=== PATIENT | female | born 1960 | race Caucasian/White ===

== ENCOUNTER 2016-11-13 14:32 | Emergency (ER) | payer MEDICARE, OTHER, MEDICAID ==
[~2016-11-13] VITALS: Ht 161.3 cm; Wt 55.3 kg
[~2016-11-13 14:32] MED LIST: DEPA250T PO; DEPA500T3 PO; PERC7.5T13 PO; RISP0.5T2 PO
[2016-11-13 14:40] VITALS: BP 130/73; PULSE 81; RESP 16; TEMP 97.9; O2SAT 99
[2016-11-13] MEDS ORDERED: RISP0.5T2 PO (15:55)
[2016-11-13] MEDS ORDERED: DIVA250ER PO (15:55)
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
--- NOTE | 2016-11-13 16:44 | RADHPO ---
EXAM DATE/TIME: 11/13/2016 16:03 [facility] COMPARISON: No previous studies available for comparison. INDICATIONS : Patient states she hit her hand on a shed, pain across MCPJ's. MEDICAL HISTORY : None. SURGICAL HISTORY : None. ENCOUNTER: Initial ACUITY: 1 day PAIN SCORE: 10/10 LOCATION: Right Hand FINDINGS: Three view examination of the right hand demonstrates soft tissue swelling overlying the metacarpal p halangeal joints greater along the fourth and fifth joint. Minimal linear lucency along the third met acarpal head. No displaced fractures. The carpal bones appear intact. The interphalangeal and meta carpophalangeal joints are intact. Bony mineralization is normal. CONCLUSION: 1. Soft tissue swelling overlying the metacarpal phalangeal joints. 2. Minimal lucency within the head of the third metacarpal could be nondisplaced fracture. Otherwise no fractures are seen. Sundar Morgan MD on November 13, 2016 at 16:40 Board Certified Radiologist. This report was verified electronically.
[2016-11-13] MEDS ORDERED: IBUPROFEN 600 MG TAB PO ONE (17:00)
[2016-12-08] MEDS ORDERED: MEDR4PAK PO (09:32)
[2016-12-08] MEDS ORDERED: PERC7.5T13 PO (09:32)
[2016-12-09] MEDS ORDERED: TRIA40P IM (10:01)
[2017-03-02] MEDS ORDERED: PERC7.5T13 PO ×2 (09:35)
[2017-03-02] MEDS ORDERED: PANT40TA3 PO (09:35)
[2017-04-14] MEDS ORDERED: ESTR1TAB PO (08:55)
[2017-04-14] MEDS ORDERED: MEDR2.5 PO (08:55)
[2017-04-16] MEDS ORDERED: MEDR4PAK PO (14:04)
[2017-04-28] MEDS ORDERED: TRIA40P I-ARTICULR (09:26)
== END 2016-11-13 17:43 | disposition home or self-care (01) ==
LOC: PHED 14:32 → PHEFT 17:43
DX: S60.041A Contusion of right ring finger without damage to nail, initial encounter (principal); W22.8XXA Striking against or struck by other objects, initial encounter; Y93.9 Activity, unspecified; Y92.9 Unspecified place or not applicable; Y99.9 Unspecified external cause status
CPT/HCPCS: 73130; 99283

== ENCOUNTER 2017-02-21 12:25 | Emergency (ER) | payer MEDICARE, OTHER, MEDICAID ==
[~2017-02-21] VITALS: Ht 172.7 cm; Wt 55.0 kg
[~2017-02-21 12:25] MED LIST changes: -DEPA250T PO; -DEPA500T3 PO; +DIVA250ER PO; +MEDR4PAK PO
[2017-02-21 12:35] VITALS: BP 133/73; PULSE 72; RESP 18; TEMP 98; O2SAT 100
[2017-02-21] MEDS ORDERED: SODIUM CHLOR 0.9% 1000 ML INJ 1,000 ML IV SCH (12:49)
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
[2017-02-21] MEDS ORDERED: ONDANSETRON HCL 4 MG/2 ML VIAL IVP ONE (13:00)
[2017-02-21] MEDS ORDERED: MORPHINE SULFATE 4 MG/ML INJ IV PUSH ONE (13:00)
[2017-02-21] MEDS ORDERED: SODIUM CHLOR 0.9% 1000 ML INJ 1,000 ML IV ONE (13:00)
[2017-02-21] MEDS ORDERED: SODIUM CHLORIDE 0.9% FLUSH 10 ML FLUSH IV FLUSH PRN (13:00)
[2017-02-21 13:02] LABS: AUTOMATED NEUTROPHIL # 5.4 TH/MM3 (1.8-7.7); BASOPHIL # 0.2 TH/MM3 (0-0.2); BASOPHIL % 2.4 % (0.0-2.0); HEMATOCRIT 36.6 % (35.0-46.0); HEMO FLAGS DIFF FINAL; LYMPH % 17.2 % (9.0-44.0); LYMPHOCYTE # 1.3 TH/MM3 (1.0-4.8); MEAN CELL VOLUME 91.9 FL (80.0-100.0); MEAN CORPUSCULAR HEMOGLOBIN 31.6 PG (27.0-34.0); MEAN CORPUSCULAR HGB CONC 34.3 % (32.0-36.0); MONO % 6.5 % (0.0-8.0); NEUT % 73.9 % (16.0-70.0); PLATELET COUNT 243 TH/MM3 (150-450); RED BLOOD COUNT 3.99 MIL/MM3 (4.00-5.30); RED CELL DISTRIBUTION WIDTH 11.9 % (11.6-17.2); WHITE BLOOD COUNT 7.4 TH/MM3 (4.0-11.0)
[2017-02-21 13:03] VITALS: O2SAT 98
[2017-02-21 13:11] LABS: CHLORIDE 101 MEQ/L (98-107); POTASSIUM 3.8 MEQ/L (3.5-5.1); SODIUM (NA) 137 MEQ/L (136-145)
[2017-02-21 13:15] LABS: ANION GAP 11 MEQ/L (5-15); BICARBONATE 25.2 MEQ/L (21.0-32.0); BLOOD UREA NITROGEN 12 MG/DL (7-18)
[2017-02-21 13:18] LABS: ALT (GPT) 20 U/L (10-53); AST (GOT) 13 U/L (15-37); GLOMERULAR FILTRATION RATE 81 ML/MIN (>89)
[2017-02-21 13:20] LABS: TOTAL BILIRUBIN ADULT 0.4 MG/DL (0.2-1.0)
[2017-02-21 13:21] LABS: ALKALINE PHOSPHATASE 52 U/L (45-117)
[2017-02-21 14:02] LABS: BLOOD, URINE TRACE (NEG); GLUCOSE,URINE NEG (NEG); KETONE, URINE NEG (NEG); NITRITE,URINE NEG (NEG); PH, URINE 6.5 (5.0-8.5)
[2017-02-21 14:08] LABS: METHOD OF COLLECTION CLEAN CATCH; URINE COLOR YELLOW (YELLW/STRAW)
[2017-02-21 14:09] LABS: COMMENT (UR) CULT NOT INDICATED; CULTURE IF INDICATED CULT NOT INDICATED; RBC, URINE 0-3 /hpf (0-3); SQUAMOUS EPITHELIAL CELL URINE 0-5 /hpf (0-5)
[2017-02-21] MEDS ORDERED: ZOFR4TAB3 SL (14:23)
[2017-02-21] MEDS ORDERED: BENT20TA PO (14:23)
[2017-02-21] MEDS ORDERED: PERC7.5T13 PO (14:23)
[2017-02-21 15:00] VITALS: BP 112/62
[2017-03-02] MEDS ORDERED: PERC7.5T13 PO ×2 (09:35)
[2017-03-02] MEDS ORDERED: PANT40TA3 PO (09:35)
[2017-04-14] MEDS ORDERED: ESTR1TAB PO (08:55)
[2017-04-14] MEDS ORDERED: MEDR2.5 PO (08:55)
[2017-04-16] MEDS ORDERED: MEDR4PAK PO (14:04)
[2017-04-28] MEDS ORDERED: TRIA40P I-ARTICULR (09:26)
== END 2017-02-21 15:04 | disposition home or self-care (01) ==
LOC: PHED 12:25
DX: K52.9 Noninfective gastroenteritis and colitis, unspecified (principal); R10.33 Periumbilical pain; Z87.19 Personal history of other diseases of the digestive system; Z87.39 Personal history of other diseases of the musculoskeletal system and connective tissue; Z86.69 Personal history of other diseases of the nervous system and sense organs; Z86.59 Personal history of other mental and behavioral disorders
CPT/HCPCS: 80053; 81001; 83690; 85025; 96361; 96374; 96375; 99284; J2270; J2405; J7030

== ENCOUNTER 2017-02-22 07:09 | Emergency (ER) | payer MEDICARE, OTHER, MEDICAID ==
[~2017-02-22] VITALS: Ht 160 cm; Wt 56.5 kg
[~2017-02-22 07:09] MED LIST changes: +BENT20TA PO; -MEDR4PAK PO; +ZOFR4TAB3 SL
[2017-02-22 07:13] VITALS: BP 126/67; PULSE 57; RESP 16; TEMP 98.1; O2SAT 100
[2017-02-22] MEDS ORDERED: SODIUM CHLORIDE 0.9% FLUSH 10 ML FLUSH IV FLUSH PRN (07:30)
[2017-02-22] MEDS ORDERED: SODIUM CHLOR 0.9% 1000 ML INJ 1,000 ML IV SCH (07:30)
[2017-02-22] MEDS ORDERED: MORPHINE SULFATE 4 MG/ML INJ IV PUSH ONE ×2 (07:30→09:30)
[2017-02-22] MEDS ORDERED: ONDANSETRON HCL 4 MG/2 ML VIAL IVP ONE (07:30)
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
[2017-02-22 07:52] LABS: AUTOMATED NEUTROPHIL # 4.5 TH/MM3 (1.8-7.7); BASOPHIL % 0.6 % (0.0-2.0); EOSINOPHIL % 0.2 % (0.0-4.0); HEMATOCRIT 37.7 % (35.0-46.0); HEMO FLAGS DIFF FINAL; LYMPH % 21.5 % (9.0-44.0); LYMPHOCYTE # 1.4 TH/MM3 (1.0-4.8); MEAN CELL VOLUME 91.6 FL (80.0-100.0); MEAN CORPUSCULAR HEMOGLOBIN 30.9 PG (27.0-34.0); MEAN CORPUSCULAR HGB CONC 33.7 % (32.0-36.0); MONO % 7.6 % (0.0-8.0); NEUT % 70.1 % (16.0-70.0); PLATELET COUNT 255 TH/MM3 (150-450); RED BLOOD COUNT 4.11 MIL/MM3 (4.00-5.30); RED CELL DISTRIBUTION WIDTH 12.6 % (11.6-17.2); WHITE BLOOD COUNT 6.4 TH/MM3 (4.0-11.0)
[2017-02-22 08:03] LABS: CHLORIDE 106 MEQ/L (98-107); POTASSIUM 3.7 MEQ/L (3.5-5.1); SODIUM (NA) 143 MEQ/L (136-145)
[2017-02-22 08:07] VITALS: BP 130/71; PULSE 52; RESP 20; O2SAT 100
[2017-02-22 08:07] LABS: ANION GAP 12 MEQ/L (5-15); BICARBONATE 25.2 MEQ/L (21.0-32.0); BLOOD UREA NITROGEN 8 MG/DL (7-18)
[2017-02-22 08:10] LABS: ALT (GPT) 17 U/L (10-53); AST (GOT) 15 U/L (15-37); GLOMERULAR FILTRATION RATE 90 ML/MIN (>89)
[2017-02-22 08:11] LABS: TOTAL BILIRUBIN ADULT 0.5 MG/DL (0.2-1.0)
[2017-02-22 08:13] LABS: ALKALINE PHOSPHATASE 50 U/L (45-117)
[2017-02-22] MEDS ORDERED: IOHEXOL 350 MG/ML 10 ML VIAL (for RAD DIAG) IV ONE (09:14)
[2017-02-22 09:35] VITALS: BP 116/67; PULSE 52; RESP 16; O2SAT 100
--- NOTE | 2017-02-22 09:41 | RADHPO ---
EXAM DATE/TIME: 02/22/2017 09:02 [facility] COMPARISON: No previous studies available for comparison. INDICATIONS : Intermittent diffuse abdominal pain with nausea and vomiting. IV CONTRAST: 90 cc Omnipaque 350 (iohexol) IV ORAL CONTRAST: No oral contrast ingested. RADIATION DOSE: 5.16 CTDIvol (mGy) MEDICAL HISTORY : Gastroesophageal reflux disease. SURGICAL HISTORY : None. ENCOUNTER: Initial ACUITY: 2 days PAIN SCALE: 4/10 LOCATION: abdomen/pelvis TECHNIQUE: Volumetric scanning of the abdomen and pelvis was performed. Using automated exposure control and ad justment of the mA and/or kV according to patient size, radiation dose was kept as low as reasonably achievable to obtain optimal diagnostic quality images. FINDINGS: CT Abdomen: The liver, spleen, pancreas, kidneys, adrenals are unremarkable. There is no evidence for any appreciable pathological adenopathy, free fluid, or bowel obstruction. CT pelvis: There is no evidence for mass, abscess formation, or any significant adenopathy within the pelvis. There is a tiny amount of fluid in the cul-de-sac. The appendix is not clearly visualized, h owever no definite signs of appendicitis is seen. CONCLUSION: Essentially unremarkable study except for tiny amount of fluid in the cul-de-sac. Jaki Irby MD on February 22, 2017 at 9:37 Board Certified Radiologist. This report was verified electronically.
[2017-03-02] MEDS ORDERED: PERC7.5T13 PO ×2 (09:35)
[2017-03-02] MEDS ORDERED: PANT40TA3 PO (09:35)
[2017-04-14] MEDS ORDERED: MEDR2.5 PO (08:55)
[2017-04-14] MEDS ORDERED: ESTR1TAB PO (08:55)
[2017-04-16] MEDS ORDERED: MEDR4PAK PO (14:04)
[2017-04-28] MEDS ORDERED: TRIA40P I-ARTICULR (09:26)
== END 2017-02-22 10:20 | disposition home or self-care (01) ==
LOC: PHED 07:09
DX: K52.9 Noninfective gastroenteritis and colitis, unspecified (principal); R10.84 Generalized abdominal pain; K21.9 Gastro-esophageal reflux disease without esophagitis
CPT/HCPCS: 74177; 80053; 80164; 83605; 83690; 85025; 96361; 96374; 96375; 96376; 99284; J2270; J2405; J7030; Q9967

== ENCOUNTER 2017-02-23 23:14 | Observation (INO) | payer MEDICARE, OTHER ==
[~2017-02-23] VITALS: Ht 160 cm; Wt 60.6 kg
[2017-02-23 23:18] VITALS: BP 126/77; PULSE 74; RESP 20; TEMP 98.1; O2SAT 98
[2017-02-23] MEDS ORDERED: SODIUM CHLORIDE 0.9% FLUSH 10 ML FLUSH IV FLUSH PRN (23:30)
[2017-02-23] MEDS ORDERED: HYDROmorphone HCL PF 1 MG/ML VIAL IV PUSH ONE (23:45)
[2017-02-23] MEDS ORDERED: SODIUM CHLOR 0.9% 1000 ML INJ 1,000 ML IV ONE (23:45)
[2017-02-23] MEDS ORDERED: ONDANSETRON HCL 4 MG/2 ML VIAL IV PUSH ONE (23:45)
--- NOTE | 2017-02-23 23:52 | PD ---
HPI Chief Complaint: Abdominal Pain Time Seen by Provider: 23:25 Travel History International Travel<30 days: No Contact w/Intl Traveler<30days: No Traveled to known affect area: No History of Present Illness HPI Patient is a 56-year-old female presents emergency Department with epigastric pain and diarrhea. Patient states the pain is fairly intense. She called her physician today to try to get a follow-up appointment and she got no answer she came in to be seen again today. She has had 2 workups for the same complaint in the past 2 days in our ER. Yesterday she had a complete set of labs as well as a CAT scan of her abdomen which showed trace fluid in the abdomen without any acute abdominal process. Patient states that she missed her Depakote for the past week and she took 2 tablets today. She states her diarrhea is nonbloody and nonbilious just watery. Denies a history of recent antibiotics to me. She also endorses nausea and vomiting which is nonbloody and nonbilious. Patient states her symptoms are unchanged. PFSH Past Medical History Hx Anticoagulant Therapy: No Arthritis: No Anxiety: Yes Depression: Yes Cancer: Yes (MELANOMA ON NOSE) Cardiovascular Problems: No Cerebrovascular Accident: No Diabetes: No Diminished Hearing: No GERD: Yes Genitourinary: No Hiatal Hernia: No Immune Disorder: No Implanted Vascular Access Dvce: No Musculoskeletal: Yes (BACK PAIN; SCIATICA) Neurologic: Yes (history of head injury) Psychiatric: Yes Respiratory: No Migraines: Yes Seizures: Yes Thyroid Disease: No Ulcer: No Tetanus Vaccination: < 5 Years Influenza Vaccination: No ?: Not Menopausal: Yes Past Surgical History Pacemaker: No Other Surgery: Yes (MELANOMA ON NOSE) Social History Alcohol Use: No Tobacco Use: No Substance Use: No Allergies-Medications (Allergen,Severity, Reaction): Coded Allergies: Gabapentin (Verified Allergy, Intermediate, Hallucinations, 02/22/17) Reported Meds & Prescriptions Reported Meds & Active Scripts Active Bentyl (Dicyclomine HCl) 20 Mg Tab 20 Mg PO QID Percocet (Oxycodone-Acetaminophen) 7.5-325 mg Tab 1 Tab PO Q6H PRN Zofran Odt (Ondansetron Odt) 4 Mg Tab 4 Mg SL Q6HR PRN Reported Risperidone 0.5 Mg Tab 0.5 Mg PO HS Depakote ER (Divalproex Sodium) 250 Mg Kathi 750 Mg PO DAILY Review of Systems Except as stated in HPI: all other systems reviewed are Neg Physical Exam Narrative GENERAL: Well-developed well-nourished appears very uncomfortable. Clutching at abdomen. SKIN: Focused skin assessment warm/dry. HEAD: Atraumatic. Normocephalic. EYES: Pupils equal and round. No scleral icterus. No injection or drainage. ENT: No nasal bleeding or discharge. Mucous membranes pink and moist. NECK: Trachea midline. No JVD. CARDIOVASCULAR: Regular rate and rhythm. No murmur appreciated. RESPIRATORY: No accessory muscle use. Clear to auscultation. Breath sounds equal bilaterally. GASTROINTESTINAL: Abdomen soft, minimally tender in epigastric region, nondistended. Hepatic and splenic margins not palpable. There are no peritoneal signs, no percussive tenderness no rebound tenderness. Table shake test is negative. Goodman sign negative, so some doctors signs negative. MUSCULOSKELETAL: No obvious deformities. No clubbing. No cyanosis. No edema. NEUROLOGICAL: Awake and alert. No obvious cranial nerve deficits. Motor grossly within normal limits. Normal speech. PSYCHIATRIC: Appropriate mood and affect; insight and judgment normal. Data Data Last Documented VS Vital Signs Date Time Temp Pulse Resp B/P Pulse Ox O2 Delivery O2 Flow Rate FiO2 02/23/17 23:18 98.1 74 20 126/77 98 Room Air Orders Complete Blood Count With Diff (02/23/17 23:25) Comprehensive Metabolic Panel (02/23/17 23:25) Lipase (02/23/17 23:25) Lactic Acid (02/23/17 23:25) Prothrombin Time / Inr (Pt) (02/23/17 23:25) Act Partial Throm Time (Ptt) (02/23/17 23:25) Urinalysis - C+S If Indicated (02/23/17 23:25) Iv Access Insert/Monitor (02/23/17 23:25) Ecg Monitoring (02/23/17 23:25) Oximetry (02/23/17 23:25) Sodium Chloride 0.9% Flush (Ns Flush) (02/23/17 23:30) Electrocardiogram (02/23/17 ) Troponin I (02/23/17 23:25) Valproic Acid (Depakene) (02/23/17 23:37) Hydromorphone Pf Inj (Dilaudid Pf Inj) (02/23/17 23:45) Ondansetron Inj (Zofran Inj) (02/23/17 23:45) Sodium Chlor 0.9% 1000 Ml Inj (Ns 1000 M (02/23/17 23:45) MDM Medical Decision Making Medical Screen Exam Complete: Yes Emergency Medical Condition: Yes Interpretation(s) EKG shows sinus bradycardia rate of 54, normal axis and normal R-wave progression. No concerning ST-T changes. Other than bradycardia intervals within normal limits. This is a normal EKG except for rate. Differential Diagnosis Abdominal pain, pancreatitis, cholecystitis, gastritis, gastric enteritis. Narrative Course Patient was roomed in the emergency department, will given pain medicine as well as EKG troponin CBC CMP and lipase. Depakote level will be checked. Patient will be discussed with Dr. Quiles at shift change to follow-up labs and disposition properly. Swapnil Noland MD Feb 23, 2017 23:52
[2017-02-24] VITALS (8 sets, daily range): BP systolic 108–136; BP diastolic 62–80; PULSE 48–70; RESP 16–20; TEMP 97.1–99; O2SAT 98–100
[2017-02-24 00:21] LABS: BASOPHIL % 0.4 % (0.0-2.0); CHLORIDE 101 MEQ/L (98-107); EOSINOPHIL # 0.1 TH/MM3 (0-0.4); EOSINOPHIL % 0.7 % (0.0-4.0); HEMATOCRIT 35.3 % (35.0-46.0); HEMO FLAGS DIFF FINAL; LYMPH % 35.1 % (9.0-44.0); LYMPHOCYTE # 2.5 TH/MM3 (1.0-4.8); MEAN CELL VOLUME 91.6 FL (80.0-100.0); MEAN CORPUSCULAR HEMOGLOBIN 31.3 PG (27.0-34.0); MEAN CORPUSCULAR HGB CONC 34.2 % (32.0-36.0); MONO % 10.3 % (0.0-8.0); NEUT % 53.5 % (16.0-70.0); PLATELET COUNT 254 TH/MM3 (150-450); POTASSIUM 3.1 MEQ/L (3.5-5.1); RED BLOOD COUNT 3.86 MIL/MM3 (4.00-5.30); RED CELL DISTRIBUTION WIDTH 11.9 % (11.6-17.2); SODIUM (NA) 137 MEQ/L (136-145); WHITE BLOOD COUNT 7.3 TH/MM3 (4.0-11.0)
[2017-02-24 00:25] LABS: ANION GAP 11 MEQ/L (5-15); BICARBONATE 25.1 MEQ/L (21.0-32.0); BLOOD UREA NITROGEN 5 MG/DL (7-18)
[2017-02-24 00:27] LABS: ALT (GPT) 22 U/L (10-53); AST (GOT) 13 U/L (15-37)
[2017-02-24 00:28] LABS: GLOMERULAR FILTRATION RATE 86 ML/MIN (>89)
[2017-02-24 00:29] LABS: TOTAL BILIRUBIN ADULT 0.8 MG/DL (0.2-1.0)
[2017-02-24 00:30] LABS: ALKALINE PHOSPHATASE 50 U/L (45-117)
[2017-02-24 00:32] LABS: BLOOD, URINE TRACE (NEG); GLUCOSE,URINE NEG (NEG); KETONE, URINE NEG (NEG); NITRITE,URINE NEG (NEG); PH, URINE 6.5 (5.0-8.5)
[2017-02-24 00:33] LABS: APTT (PATIENT) 24.7 SEC (24.3-30.1); PROTHROMBIN TIME - PATIENT 10.9 SEC (9.8-11.6)
[2017-02-24 00:45] LABS: URINE COLOR YELLOW (YELLW/STRAW); WBC, URINE 0-2 /hpf (0-5)
[2017-02-24 00:46] LABS: MUCUS URINE OCC /lpf (OCC); SQUAMOUS EPITHELIAL CELL URINE 0-5 /hpf (0-5)
[2017-02-24 00:47] LABS: COMMENT (UR) CULT NOT INDICATED; CULTURE IF INDICATED CULT NOT INDICATED; RBC, URINE 0-3 /hpf (0-3)
--- NOTE | 2017-02-24 01:29 | PD ---
Physical Exam Time Seen by Provider: 01:[address] Noland left this patient with me to check the laboratory and make a dispositionlikely admission. Apparently, the patient is a [facility] teaching service of Dr. Manriquez. The patient tried to call Dr. Manriquez today but never got an answer her call back. She now returns for the third time in 3 days to the emergency department for her abdominal pain which is midline epigastrium, nausea, vomiting and diarrhea. Data Data Last Documented VS Vital Signs Date Time Temp Pulse Resp B/P Pulse Ox O2 Delivery O2 Flow Rate FiO2 02/24/17 00:20 20 02/23/17 23:18 98.1 74 126/77 98 Room Air Orders Complete Blood Count With Diff (02/23/17 23:25) Comprehensive Metabolic Panel (02/23/17 23:25) Lipase (02/23/17 23:25) Lactic Acid (02/23/17 23:25) Prothrombin Time / Inr (Pt) (02/23/17 23:25) Act Partial Throm Time (Ptt) (02/23/17 23:25) Urinalysis - C+S If Indicated (02/23/17 23:25) Iv Access Insert/Monitor (02/23/17 23:25) Ecg Monitoring (02/23/17 23:25) Oximetry (02/23/17 23:25) Sodium Chloride 0.9% Flush (Ns Flush) (02/23/17 23:30) Electrocardiogram (02/23/17 ) Troponin I (02/23/17 23:25) Valproic Acid (Depakene) (02/23/17 23:37) Hydromorphone Pf Inj (Dilaudid Pf Inj) (02/23/17 23:45) Ondansetron Inj (Zofran Inj) (02/23/17 23:45) Sodium Chlor 0.9% 1000 Ml Inj (Ns 1000 M (02/23/17 23:45) Labs Laboratory Tests Test 02/23/17 23:50 White Blood Count 7.3 TH/MM3 Red Blood Count 3.86 MIL/MM3 Hemoglobin 12.1 GM/DL Hematocrit 35.3 % Mean Corpuscular Volume 91.6 FL Mean Corpuscular Hemoglobin 31.3 PG Mean Corpuscular Hemoglobin 34.2 % Concent Red Cell Distribution Width 11.9 % Platelet Count 254 TH/MM3 Mean Platelet Volume 8.4 FL Neutrophils (%) (Auto) 53.5 % Lymphocytes (%) (Auto) 35.1 % Monocytes (%) (Auto) 10.3 % Eosinophils (%) (Auto) 0.7 % Basophils (%) (Auto) 0.4 % Neutrophils # (Auto) 4.0 TH/MM3 Lymphocytes # (Auto) 2.5 TH/MM3 Monocytes # (Auto) 0.7 TH/MM3 Eosinophils # (Auto) 0.1 TH/MM3 Basophils # (Auto) 0.0 TH/MM3 CBC Comment DIFF FINAL Differential Comment Prothrombin Time 10.9 SEC Prothromb Time International 1.0 RATIO Ratio Activated Partial 24.7 SEC Thromboplast Time Urine Color YELLOW Urine Turbidity CLEAR Urine pH 6.5 Urine Specific [place] 1.008 Urine Protein NEG mg/dL Urine Glucose (UA) NEG mg/dL Urine Ketones NEG mg/dL Urine Occult Blood TRACE Urine Nitrite NEG Urine Bilirubin NEG Urine Leukocyte Esterase NEG Urine RBC 0-3 /hpf Urine WBC 0-2 /hpf Urine Squamous Epithelial 0-5 /hpf Cells Urine Amorphous Sediment SMALL Urine Mucus OCC /lpf Microscopic Urinalysis Comment CULT NOT INDICATED Sodium Level 137 MEQ/L Potassium Level 3.1 MEQ/L Chloride Level 101 MEQ/L Carbon Dioxide Level 25.1 MEQ/L Anion Gap 11 MEQ/L Blood Urea Nitrogen 5 MG/DL Creatinine 0.71 MG/DL Estimat Glomerular Filtration 86 ML/MIN Rate Random Glucose 115 MG/DL Lactic Acid Level 2.1 mmol/L Calcium Level 8.7 MG/DL Total Bilirubin 0.8 MG/DL Aspartate Amino Transf 13 U/L (AST/SGOT) Alanine Aminotransferase 22 U/L (ALT/SGPT) Alkaline Phosphatase 50 U/L Troponin I LESS THAN 0.02 NG/ML Total Protein 7.1 GM/DL Albumin 3.8 GM/DL Lipase 235 U/L Valproic Acid (Depakene) Level 21 MCG/ML [facility] Medical Record Reviewed: Yes Supervised Visit with ROBERT: Yes Interpretation(s) The coagulation profile is essentially normal. The urinalysis shows trace occult blood but is otherwise unremarkable and culture is not indicated. The valproic acid level is 21. The complete metabolic profile shows potassium 3.1 but is otherwise unremarkable. The troponin I is normal and the lipase is normal. The lactic acid is 2.1. The CBC is normal. The EKG shows no acute change, sinus bradycardia with a rate of 54. Differential Diagnosis Gastroenteritis, cholecystitis, pyelonephritis, colitis, electrolyte disorder, dehydration, intractable abdominal pain Narrative Course The patient has intractable abdominal pain and will be [address] Mooney, discussed the patient with her. Physician Communication Physician Communication I discussed the patient with Dr. Mooney. Diagnosis Primary Impression: Intractable abdominal pain Additional Impression: Gastroenteritis Admitting Information Admitting Physician Requests: Observation Ramiro Quiles MD Feb 24, 2017 01:29
[2017-02-24] MEDS ORDERED: SODIUM CHLOR 0.9% 1000 ML INJ 1,000 ML IV SCH (01:33)
[2017-02-24] MEDS ORDERED: POTASSIUM CHLORIDE 20 MEQ CONTROLLED RELEASE TAB PO ONE (01:45)
[2017-02-24] MEDS ORDERED: HYDROmorphone HCL PF 1 MG/ML VIAL IV PUSH PRN (01:45)
[2017-02-24] MEDS ORDERED: NALOXONE HCL 0.4 MG/ML AMP IV PRN (01:45)
[2017-02-24] MEDS ORDERED: SODIUM CHLORIDE 0.9% FLUSH 10 ML FLUSH IV FLUSH PRN (01:45)
[2017-02-24] MEDS: POTASSIUM CHLOR 20 MEQ PREMIX 100 ML IV SCH ×2 (02:00→04:00)
[2017-02-24] MEDS ORDERED: ONDANSETRON HCL 4 MG/2 ML VIAL IV PUSH ONE (04:45)
[2017-02-24] MEDS ORDERED: ACETAMINOPHEN 325 MG TAB PO PRN (04:45)
[2017-02-24] MEDS ORDERED: CALCIUM CARBONATE 500 MG CHEWABLE TAB CHEW PRN (05:45)
[2017-02-24] MEDS ORDERED: ACETAMINOPHEN/HYDROcodone 325 MG/5 MG TAB PO PRN (05:45)
[2017-02-24] MEDS ORDERED: ONDANSETRON HCL 4 MG/2 ML VIAL IVP PRN (05:45)
[2017-02-24] MEDS ORDERED: ALUMINUM/MAGNESIUM/SIMETH 30 ML CUP PO PRN (05:45)
[2017-02-24] MEDS ORDERED: LORazepam 2 MG/ML VIAL IV PUSH PRN (05:45)
[2017-02-24] MEDS ORDERED: IMIT100T PO (05:50)
[2017-02-24] MEDS: PANTOPRAZOLE SODIUM 40 MG VIAL IV PUSH SCH (06:34)
[2017-02-24] MEDS: NS + KCL 20 MEQ INJ 1,000 ML IV SCH ×3 (06:35→22:09)
[2017-02-24] MEDS: HYDROmorphone HCL PF 1 MG/ML VIAL IV PRN (06:49)
[2017-02-24] MEDS: SODIUM CHLORIDE 0.9% FLUSH 10 ML FLUSH IV FLUSH SCH ×2 (08:07→21:00)
[2017-02-24] MEDS ORDERED: DIVALPROEX SODIUM E.R. 250 MG TAB PO SCH (09:00)
--- NOTE | 2017-02-24 09:22 | HHI.HP ---
HPI Service [facility] Primary Care Physician Unknown Admission Diagnosis intractable abdominal pain Diagnoses: Chief Complaint: Abdominal pain Travel History International Travel<30 Days: No Contact w/Intl Traveler <30 Da: No Traveled to Known Affected Are: No History of Present Illness 56-year-old female with a past history of TBI with seizures and migraine, chronic back pain, insomnia, GERD who presented with abdominal pain. The patient states that since Thursday she has been having nausea, vomiting, diarrhea, and epigastric abdominal pain. This was her third ED visits for these complaints, with negative workups. She has been unable to get in to see her PCP with the family practice residents. She describes the pain as sharp and states it radiates to the right upper quadrant. She states the pain is worsened when she eats and when she vomits. She describes the vomitus as the food she eats. She denies any blood in stools, states stools are watery. She does take Advil on occasion, last used last week. She does have a history of EGD and colonoscopy with Dr. Lloyd about 4 years ago. She denies any medication changes. She denies any recent antibiotic use. She denies any sick contacts or recent travel. She denies ingesting seafood recently. She denies ingesting well water. The patient also has a history of migraines. Currently she complains of a headache since being admitted last night. Described as constant, sharp. She denies any vision changes. She states this is typical of her migraines. She normally takes Imitrex at home for migraines. She denies any fevers or chills. Review of Systems Except as stated in HPI: all other systems reviewed are Neg Past Family Social History Past Medical History History of head injury with subsequent seizure disorder and migraines, years since last seizure Insomnia Chronic back pain History of GERD Past Surgical History EGD/colonoscopy Reported Medications Bentyl (Dicyclomine HCl) 20 Mg Tab 20 Mg PO QID Percocet (Oxycodone-Acetaminophen) 7.5-325 mg Tab 1 Tab PO Q6H PRN Zofran Odt (Ondansetron Odt) 4 Mg Tab 4 Mg SL Q6HR PRN Imitrex (Sumatriptan Succinate) 100 Mg Tab 100 Mg PO INTERMITTENT PRN If a satisfactory response has not been obtained at 2 hours, a second dose may be administered Risperidone 0.5 Mg Tab 0.5 Mg PO HS Depakote ER (Divalproex Sodium) 250 Mg Kathi 750 Mg PO DAILY Allergies: Coded Allergies: Gabapentin (Verified Allergy, Intermediate, Hallucinations, 02/22/17) Active Ordered Medications Current Medications Medications (Trade) Dose Ordered Sig/Isadora Route Start Time Stop Time Status Last Admin (NS Flush) 2 ml UNSCH PRN IV FLUSH 02/24/17 01:45 (NS Flush) 2 ml BID IV FLUSH 02/24/17 09:00 (Narcan Inj) 0.4 mg UNSCH PRN IV 02/24/17 01:45 (Dilaudid Pf Inj) 0.2 mg Q4H PRN IV PUSH 02/24/17 01:45 02/24/17 02:28 Acetaminophen 650 mg 650 mg Q4H PRN PO 02/24/17 04:45 02/24/17 04:54 (NS + KCl 20 Meq Inj) 1,000 ml @ 84 mls/hr [id number] IV 02/24/17 05:45 02/24/17 06:35 (Protonix Inj) 40 mg Q24H IV PUSH 02/24/17 06:00 02/24/17 06:34 (Zofran Inj) 4 mg Q6H PRN IVP 02/24/17 05:45 (Morris 5-325 Mg) 1 tab Q4H PRN PO 02/24/17 05:45 (Mag-Al Plus Susp Liq) 30 ml Q6H PRN PO 02/24/17 05:45 (Tums Chew) 1,000 mg TID PRN CHEW 02/24/17 05:45 (Dilaudid Pf Inj) 0.2 mg Q3H PRN IV 02/24/17 05:45 02/24/17 06:49 (Depakote Er) 750 mg DAILY PO 02/24/17 09:00 02/25/17 06:00 (risperDAL) 0.5 mg HS PO 02/24/17 21:00 (Ativan Inj) 1 mg Q6H PRN IV PUSH 02/24/17 05:45 (Imitrex Inj) 6 mg UNSCH PRN SQ 02/24/17 09:00 (Depakote Er) 750 mg HS PO 02/24/17 21:00 Family History Mother has and had diabetes, HLD, HTN, lung cancer Social History No alcohol, tobacco, drug use Physical Exam Vital Signs Vital Signs Date Time Temp Pulse Resp B/P Pulse Ox O2 Delivery O2 Flow Rate FiO2 02/24/17 08:00 99.0 58 16 114/74 99 02/24/17 05:54 18 02/24/17 04:00 98.4 57 18 110/70 100 02/24/17 03:45 64 20 108/62 98 02/24/17 02:00 70 20 112/68 98 02/24/17 00:20 65 20 110/63 98 02/24/17 00:20 20 02/23/17 23:18 98.1 74 20 126/77 98 Room Air Physical Exam GENERAL: Well-developed well-nourished. In no acute distress. SKIN: Warm and dry. No lesions noted. HEENT: Normocephalic. Pupils equal and round. Mucous membranes pink and moist. CARDIOVASCULAR: Regular rate and rhythm. No murmur appreciated. RESPIRATORY: No accessory muscle use. Clear to auscultation. Breath sounds equal bilaterally. GASTROINTESTINAL: Abdomen soft, RUQ and epigastric TTP, nondistended. Bowel sounds x4. Positive Goodman sign. MUSCULOSKELETAL: No obvious deformities. No clubbing or cyanosis. No edema. NEUROLOGICAL: Awake and alert. No focal neurological deficits. Moves upper and lower extremities spontaneously. Normal speech. PSYCHIATRIC: Appropriate mood and affect; insight and judgment normal. Laboratory Laboratory Tests Test 02/23/17 02/24/17 23:50 07:15 White Blood Count 7.3 Red Blood Count 3.86 Hemoglobin 12.1 Hematocrit 35.3 Mean Corpuscular Volume 91.6 Mean Corpuscular Hemoglobin 31.3 Mean Corpuscular Hemoglobin 34.2 Concent Red Cell Distribution Width 11.9 Platelet Count 254 Mean Platelet Volume 8.4 Neutrophils (%) (Auto) 53.5 Lymphocytes (%) (Auto) 35.1 Monocytes (%) (Auto) 10.3 Eosinophils (%) (Auto) 0.7 Basophils (%) (Auto) 0.4 Neutrophils # (Auto) 4.0 Lymphocytes # (Auto) 2.5 Monocytes # (Auto) 0.7 Eosinophils # (Auto) 0.1 Basophils # (Auto) 0.0 CBC Comment DIFF FINAL Differential Comment Prothrombin Time 10.9 Prothromb Time International 1.0 Ratio Activated Partial 24.7 Thromboplast Time Urine Color YELLOW Urine Turbidity CLEAR Urine pH 6.5 Urine Specific [place] 1.008 Urine Protein NEG Urine Glucose (UA) NEG Urine Ketones NEG Urine Occult Blood TRACE Urine Nitrite NEG Urine Bilirubin NEG Urine Leukocyte Esterase NEG Urine RBC 0-3 Urine WBC 0-2 Urine Squamous Epithelial 0-5 Cells Urine Amorphous Sediment SMALL Urine Mucus OCC Microscopic Urinalysis Comment CULT NOT INDICATED Sodium Level 137 Potassium Level 3.1 Chloride Level 101 Carbon Dioxide Level 25.1 Anion Gap 11 Blood Urea Nitrogen 5 Creatinine 0.71 Estimat Glomerular Filtration 86 Rate Random Glucose 115 Lactic Acid Level 2.1 Calcium Level 8.7 Total Bilirubin 0.8 Aspartate Amino Transf 13 (AST/SGOT) Alanine Aminotransferase 22 (ALT/SGPT) Alkaline Phosphatase 50 Troponin I LESS THAN 0.02 Total Protein 7.1 Albumin 3.8 Lipase 235 Valproic Acid (Depakene) Level 21 Magnesium Level 1.9 Result Diagram: 02/23/17 23502/23/17 235 Assessment and Plan Assessment and Plan 56-year-old female with a past history of TBI with seizures and migraine, chronic back pain, insomnia, GERD who presented with abdominal pain Abdominal pain, nausea, vomiting, diarrhea Reviewed: Lipase within normal limits. Lactic acid 2.1. Abdominal CT 02/22/17 was essentially unremarkable except for a tiny amount of fluid in the cul-de- sac. LFTs within normal limits. Plan: Check HIDA scan. Consider abdominal CTA with elevated lactic acid. IV Protonix. IVF. Zofran as needed. Oral and intravenous narcotics as needed for pain. Nothing by mouth for now. Stool studies if further diarrhea. GI or general surgery consult if needed. Acute migraine: Subcutaneous Imitrex 1, repeat if needed. Hypokalemia: Likely secondary to vomiting. Replaced orally and by IV. Magnesium within normal limits. Follow-up BMP. Seizure disorder: Patient states she forgot to take her Depakote for the last week. Valproic acid level subtherapeutic. Resume Depakote. Ativan as needed for seizures. Seizure precautions. Insomnia: Chronic, stable. Continue home Risperdal. DVT prophylaxis: SCDs Written by Angus Garcia, acting as scribe for Dr. Joiner on 02/24/17 at 09:16. This note was transcribed by scribe []. I, Dr. Nelson Joiner personally performed the history, physical exam, and medical decision making; and confirmed the accuracy of the information in the transcribed note. Authenticated by Dr. Nelson Joiner on 02/24/17 at 21:27. Discussed Condition With Patient Angus Garcia Feb 24, 2017 09:22 Nelson Joiner MD Feb 24, 2017 21:28
[2017-02-24] MEDS: SUMAtriptan INJ 6 MG/0.5 ML VIAL SQ PRN (09:53)
[2017-02-24] MEDS: ACETAMINOPHEN/HYDROcodone 325 MG/7.5 MG TAB PO PRN ×3 (13:44→23:36)
--- NOTE | 2017-02-24 14:26 | RADHPO ---
EXAM DATE/TIME: 02/24/2017 11:55 [facility] COMPARISON: BILIARY QUANTITATIVE (HIDA), March 29, 2012, 10:58. INDICATIONS : Abdominal pain with nausea and vomiting. DOSE: 4.3 mCi Tc99m Mebrofenin IV MEDICAL HISTORY : Gastroesophageal reflux disease. SURGICAL HISTORY : None. ENCOUNTER: Initial ACUITY: 3 days PAIN SCALE: 5/10 LOCATION: Right upper quadrant TECHNIQUE: Following the intravenous administration of radiotracer, dynamic sequential images were performed wit h continuous acquisition. FINDINGS: HEPATIC KINETICS: There is prompt uptake of radiotracer in the liver. No focal defects are seen. There is normal rate of washout from the hepatic parenchyma. Activity is also seen in the urinary bladder, 1st noted at 5 minutes; this suggests that there is free pertechnetate in the radiopharmaceutical preparation. BILIARY CLEARANCE: Activity is first seen in the extrahepatic biliary system at 4 minutes. There is normal excretion in to the small bowel. GALLBLADDER: Activity is first seen in the gallbladder at the 11 minutes. Common bile duct kinetics are normal an d there is no evidence of biliary obstruction. BILIARY ENTRIC REFLUX: Moderate severity biliary enteric reflux is noted at 20 minutes CONCLUSION: 1. Prompt visualization of gallbladder exclude cystic duct obstruction. 2. Moderate severity biliary enteric reflux. Andrew Will MD on February 24, 2017 at 14:09 Board Certified Radiologist. This report was verified electronically.
--- NOTE | 2017-02-24 19:11 | MB ---
cc: SHAILESH GRANT M.D., JOSE R. MD DATE OF CONSULTATION: 02/24/2017 REASON FOR CONSULTATION: Nausea, vomiting, abdominal pain and diarrhea. HISTORY OF PRESENT ILLNESS: Ms. Barry is a 56-year-old lady who states she has been having severe nausea, vomiting, epigastric and right upper quadrant pain since Thursday. She is also having diarrhea which has stopped this morning. She has had multiple visits to the emergency room over the last couple of days. Blood work and imaging studies have essentially been unremarkable. She had a CT scan done which was unremarkable and more recently a HIDA scan which was also unremarkable. She denies any previous GI related symptoms. She is not having any acute GI bleeding at this time. PAST MEDICAL HISTORY 1. History of traumatic brain injury. 2. Seizure disorder. 3. Migraines. 4. Insomnia. 5. Chronic back pain. 6. Reflux disease. PAST SURGICAL HISTORY EGD Colonoscopy in the past. MEDICATIONS On admission: 1. Bentyl. 2. Percocet. 3. Zofran. 4. Imitrex. 5. Risperdone. 6. Depakote. 7. Protonix 8. Zofran ALLERGIES: GABAPENTIN FAMILY HISTORY: Noncontributory. SOCIAL HISTORY No tobacco, no alcohol reported. PHYSICAL EXAMINATION: Physical examination reveals a well-nourished lady in no apparent distress. Vital signs: Stable. Head and neck examination: Anicteric sclerae. Chest: Bilateral air entry with rales. Abdomen: Soft, minimal tenderness in the epigastric area. No guarding, no rigidity. INHALATION THERAPY AIDES TEACHER: Exam is nonfocal. Rectal: Exam deferred at this time. LABORATORY DATA: White cell count 7.3, hemoglobin 12.3, creatinine 0.71. Liver functions are normal. Lipase is 235. IMAGING STUDIES: HIDA scan done reveals prompt visualization of the gallbladder. Contrast excretes normally into the small bowel. There was moderate biliary enteric reflux. Ejection fraction was not calculated. IMPRESSION: Very likely gastroenteritis, possibility of gastritis. Peptic ulcer disease needs to be ruled out. RECOMMENDATIONS: Continue Protonix, Zofran at this time. Endoscopy is planned for tomorrow. The risks and limitations have been addressed by the patient, n.p.o. after midnight. Further recommendations to follow. Her diarrhea at this time has stopped. If this recurs, would recommend stool studies. Thank you for the referral. MD JUMA Dominguez/JESSA /4:09 PM /6:41 PM
[2017-02-24] MEDS: risperiDONE 0.25 MG TAB PO SCH (22:08)
[2017-02-24] MEDS: DIVALPROEX SODIUM E.R. 250 MG TAB PO SCH (22:08)
[2017-02-25] VITALS (8 sets, daily range): BP systolic 104–143; BP diastolic 64–76; PULSE 52–60; RESP 16–20; TEMP 96.5–98.9; O2SAT 98–100
--- NOTE | 2017-02-25 00:05 | EKG ---
Date Performed: 02/24/2017 Time Performed: 00:07:24 PTAGE: 56 years EKG: Sinus bradycardia Borderline ECG PREVIOUS TRACING : 02/06/2015 18.00 Compared to prior tracing no significant change DOCTOR: Scot Resendiz Interpretating Date/Time 02/25/2017 00:05:02
[2017-02-25] MEDS: ACETAMINOPHEN/HYDROcodone 325 MG/7.5 MG TAB PO PRN ×4 (05:38→22:20)
[2017-02-25] MEDS: PANTOPRAZOLE SODIUM 40 MG VIAL IV PUSH SCH (05:40)
[2017-02-25 06:38] LABS: BASOPHIL # 0.1 TH/MM3 (0-0.2); BASOPHIL % 1.3 % (0.0-2.0); EOSINOPHIL # 0.1 TH/MM3 (0-0.4); EOSINOPHIL % 1.7 % (0.0-4.0); HEMATOCRIT 33.6 % (35.0-46.0); HEMO FLAGS DIFF FINAL; LYMPH % 43.3 % (9.0-44.0); MEAN CELL VOLUME 92.4 FL (80.0-100.0); MEAN CORPUSCULAR HEMOGLOBIN 30.5 PG (27.0-34.0); MONO % 9.9 % (0.0-8.0); NEUT % 43.8 % (16.0-70.0); PLATELET COUNT 221 TH/MM3 (150-450); RED BLOOD COUNT 3.63 MIL/MM3 (4.00-5.30); RED CELL DISTRIBUTION WIDTH 11.9 % (11.6-17.2); WHITE BLOOD COUNT 4.7 TH/MM3 (4.0-11.0)
[2017-02-25 07:02] LABS: BICARBONATE 25.2 MEQ/L (21.0-32.0); POTASSIUM 4.2 MEQ/L (3.5-5.1)
[2017-02-25] MEDS: SODIUM CHLORIDE 0.9% FLUSH 10 ML FLUSH IV FLUSH SCH ×2 (09:00→20:05)
[2017-02-25] MEDS: NS + KCL 20 MEQ INJ 1,000 ML IV SCH ×2 (09:24→20:06)
[2017-02-25] MEDS: SUMAtriptan INJ 6 MG/0.5 ML VIAL SQ PRN (11:26)
[2017-02-25] MEDS ORDERED: PROPOFOL 200 MG/20 ML AMP IV ONE (15:17)
--- NOTE | 2017-02-25 15:22 | GIPROC ---
[address], [address] EGD PROCEDURE REPORT EXAM DATE: 02/25/2017 PATIENT NAME: Teresita Barry MR #: [id number] BIRTHDATE: 1960 ATTENDING: Sasha Lloyd MD ORDER #: [id number] TALENT ACQUISITION ADMINISTRATOR: Abel Mc and Harrison Hyman STATUS: inpatient INDICATIONS: The patient is a 56 yr old female here for an EGD due to nausea, vomiting, diarrhea PROCEDURE PERFORMED: EGD w/ biopsy MEDICATIONS: None and Per Anesthesia. TOPICAL ANESTHETIC: none CONSENT: The patient understands the risks and benefits of the procedure and understands that these risks include, but are not limited to: sedation, allergic reaction, infection, perforation and/or bleeding. Alternative means of evaluation and treatment include, among others: physical exam, x-rays, and/or surgical intervention. The patient elects to proceed with this endoscopic procedure. medical equipment was checked for proper function. Hand hygiene and appropriate measures for infection prevention was taken. After the risks, benefits and alternatives of the procedure were thoroughly explained, Informed consent was verified, confirmed and timeout was successfully executed by the treatment team. The patient was anesthetized with topical anesthesia and the Pentax EG-[id number] endoscope was introduced through the mouth and advanced to the second portion of the duodenum. Retroflexed views revealed a hiatal hernia The gastroscope was then slowly withdrawn and removed. Gastritis antrum-biopsy/linear ulcer duodenum normal-biopsy irregular z line-biopsy. ADVERSE EVENTS: There were no complications. IMPRESSIONS: 1. Gastritis antrum-biopsy/linear ulcer duodenum normal-biopsy irregular z line-biopsy 2. Retroflexed views revealed a hiatal hernia RECOMMENDATIONS: 1. Await biopsy results. Biopsy results will not be ready for 7-10 days. If you don't hear from us in two weeks, call our office for biopsy results. 2. Anti-reflux regimen 3. Continue PPI 4. Avoid NSAIDS 5. Soft diet PATIENT CONDITION: stable DISPOSITION: Inpatient REPEAT EXAM: EGD pending biopsy results Sasha Lloyd MD eSigned: Sasha Lloyd MD 02/25/2017 3:22 PM cc: PATIENT NAME: Teresita Barry MR#: [id number]
--- NOTE | 2017-02-25 16:03 | HHI.PR ---
Subjective Remarks Follow up abdominal pain. Patient just returned from EGD. Ulcer noted. Patient states that her abdomen is uncomfortable, but not as painful anymore. No nausea/ vomiting. Objective Vitals Vital Signs Date Time Temp Pulse Resp B/P Pulse Ox O2 Delivery O2 Flow Rate FiO2 02/25/17 15:30 98.5 49 14 108/59 100 02/25/17 13:55 98.4 53 16 120/71 100 02/25/17 12:00 98.8 52 16 143/71 98 02/25/17 08:00 98.7 56 16 110/64 99 02/25/17 07:15 56 02/25/17 06:38 20 02/25/17 04:00 98.9 60 18 107/69 98 02/25/17 00:00 96.5 54 18 125/76 100 02/24/17 20:00 97.1 60 18 136/76 100 02/24/17 20:00 48 02/24/17 16:00 98.8 57 16 119/80 100 I/O 02/24/17 02/24/17 02/24/17 02/25/17 02/25/17 02/25/17 07:00 15:00 23:00 07:00 15:00 23:00 Intake Total 1120 ml 840 ml 560 ml 1193 ml 200 ml Balance 1120 ml 840 ml 560 ml 1193 ml 200 ml Intake Oral 120 ml 840 ml 240 ml IV Total 1000 ml 320 ml 1193 ml Other 200 ml # Voids 3 3 2 2 # Bowel Movements 0 0 0 Result Diagram: 02/25/17 0600 02/25/17 0600 Imaging Last Impressions Hepatobiliary Scan Nuclear Medicine 02/24/17 0000 Signed Impressions: Service Date/Time: Friday, February 24, 2017 11:55 - CONCLUSION: 1. Prompt visualization of gallbladder exclude cystic duct obstruction. 2. Moderate severity biliary enteric reflux. Andrew Will MD Objective Remarks Gen: No acute distress. CV: RRR Lungs: CTA Abd: Soft, mild diffuse tenderness, nondistended Ext: No edema. Urinary Catheter: No Vascular Central Line Catheter: No A/P Problem List: (1) Abdominal pain ICD Code: R10.9 Status: Acute (2) Gastric ulcer ICD Code: K25.9 Status: Acute (3) Gastritis ICD Code: K29.70 Status: Acute Assessment and Plan 1. Abdominal pain: S/P EGD, which showed ulcer, gastritis. Appreciate GI recommendations. 2. Migraine: Resolved. 3. Hypokalemia: Improved. 4. Seizure disorder: Continue Depakote. Ativan as needed. Seizure precautions. 5. Insomnia: Chronic, stable. Continue Risperdal 6. DVT prophylaxis: SCDs. Discharge Planning Possible discharge home tomorrow if cleared by GI. Deonte Frank MD Feb 25, 2017 16:03
[2017-02-25] MEDS: risperiDONE 0.25 MG TAB PO SCH (20:04)
[2017-02-25] MEDS: DIVALPROEX SODIUM E.R. 250 MG TAB PO SCH (20:05)
[2017-02-26] VITALS: BP 101/70; PULSE 62; RESP 20; TEMP 97.5; O2SAT 100
[2017-02-26] MEDS: HYDROmorphone HCL PF 1 MG/ML VIAL IV PRN (03:04)
[2017-02-26 04:00] VITALS: BP 85/62; PULSE 55; RESP 20; TEMP 97.6; O2SAT 99
[2017-02-26] MEDS: NS + KCL 20 MEQ INJ 1,000 ML IV SCH (06:12)
[2017-02-26] MEDS: PANTOPRAZOLE SODIUM 40 MG VIAL IV PUSH SCH (06:12)
[2017-02-26] MEDS: ACETAMINOPHEN/HYDROcodone 325 MG/7.5 MG TAB PO PRN ×2 (06:12→12:24)
[2017-02-26 08:55] VITALS: BP 99/67; PULSE 59; RESP 16; TEMP 97.1; O2SAT 100
[2017-02-26] MEDS: SODIUM CHLORIDE 0.9% FLUSH 10 ML FLUSH IV FLUSH SCH (09:00)
--- NOTE | 2017-02-26 10:45 | HHI.PR ---
Subjective Remarks Follow-up gastric ulcer. Patient states that she feels much better today. No nausea or vomiting. Mild abdominal discomfort, but significantly less today. She tolerated soft diet. She would like to go home today. Objective Vitals Vital Signs Date Time Temp Pulse Resp B/P Pulse Ox O2 Delivery O2 Flow Rate FiO2 02/26/17 08:55 97.1 59 16 99/67 100 02/26/17 07:12 20 02/26/17 04:00 97.6 55 20 85/62 99 02/26/17 03:34 20 02/26/17 00:00 97.5 62 20 101/70 100 02/25/17 20:00 97.9 60 20 104/67 99 02/25/17 20:00 58 02/25/17 16:00 97.6 56 18 121/69 100 02/25/17 15:50 98.4 54 16 124/51 100 02/25/17 15:40 44 15 114/56 100 02/25/17 15:30 98.5 49 14 108/59 100 02/25/17 13:55 98.4 53 16 120/71 100 02/25/17 12:00 98.8 52 16 143/71 98 I/O 02/25/17 02/25/17 02/25/17 02/26/17 02/26/17 02/26/17 07:00 15:00 23:00 07:00 15:00 23:00 Intake Total 1193 ml 0 ml 610 ml 2020 ml Balance 1193 ml 0 ml 610 ml 2020 ml Intake Oral 0 ml 410 ml 160 ml IV Total 1193 ml 1860 ml Other 200 ml # Voids 2 3 3 4 # Bowel Movements 0 0 0 Result Diagram: 02/25/17 0600 02/25/17 0600 Imaging Last Impressions Hepatobiliary Scan Nuclear Medicine 02/24/17 0000 Signed Impressions: Service Date/Time: Friday, February 24, 2017 11:55 - CONCLUSION: 1. Prompt visualization of gallbladder exclude cystic duct obstruction. 2. Moderate severity biliary enteric reflux. Andrew Will MD Objective Remarks General: No acute distress. Heart: Regular rate and rhythm. No murmur. Lungs: Clear to auscultation bilaterally. No wheezes, rales, or rhonchi. Breathing is nonlabored. Abdomen: Soft, nontender, nondistended. Extremities: No lower extremity edema. Psych: Alert and oriented. Procedures 02/25/17 EGD Urinary Catheter: No Vascular Central Line Catheter: No A/P Problem List: (1) Abdominal pain ICD Code: R10.9 Status: Acute (2) Gastric ulcer ICD Code: K25.9 Status: Acute (3) Gastritis ICD Code: K29.70 Status: Acute Assessment and Plan 1. Abdominal pain: S/P EGD, which showed ulcer, gastritis. Appreciate GI recommendations. Continue PPI. 2. Migraine: Resolved. 3. Hypokalemia: Improved. 4. Seizure disorder: Continue Depakote. Ativan as needed. Seizure precautions. 5. Insomnia: Chronic, stable. Continue Risperdal 6. DVT prophylaxis: SCDs. Discharge Planning Plan for discharge home when cleared by gastroenterology. Deonte Frank MD Feb 26, 2017 10:45
--- NOTE | 2017-02-26 10:46 | HHI.DCPOC ---
Discharge Care Plan Diagnosis: (1) Gastric ulcer (2) Abdominal pain (3) Gastritis Goals to Promote Your Health * To prevent worsening of your condition and complications * To maintain your health at the optimal level Directions to Meet Your Goals Take your medications as prescribed Follow your dietary instruction Follow activity as directed Keep your appointments as scheduled Take your immunizations and boosters as scheduled If your symptoms worsen call your PCP, if no PCP go to Urgent Care Center or Emergency Room Smoking is Dangerous to Your Health. Avoid second hand smoke Call the 24-hour hour crisis hotline for domestic abuse at Deonte Frank MD Feb 26, 2017 10:46
[2017-02-26] MEDS ORDERED: PANT40TA3 PO (11:16)
--- NOTE | 2017-02-26 11:20 | HHI.DS ---
Discharge Summary Admission Date Feb 24, 2017 at 01:45 Discharge Date: Feb 26, 2017 Admitting Diagnosis intractable abdominal pain (1) Abdominal pain ICD Code: R10.9 (2) Gastric ulcer ICD Code: K25.9 (3) Gastritis ICD Code: K29.70 Procedures 02/25/17 EGD Brief History - From Admission 56-year-old female with a past history of TBI with seizures and migraine, chronic back pain, insomnia, GERD who presented with abdominal pain. The patient states that since Thursday she has been having nausea, vomiting, diarrhea, and epigastric abdominal pain. This was her third ED visits for these complaints, with negative workups. She has been unable to get in to see her PCP with the family practice residents. She describes the pain as sharp and states it radiates to the right upper quadrant. She states the pain is worsened when she eats and when she vomits. She describes the vomitus as the food she eats. She denies any blood in stools, states stools are watery. She does take Advil on occasion, last used last week. She does have a history of EGD and colonoscopy with Dr. Lloyd about 4 years ago. She denies any medication changes. She denies any recent antibiotic use. She denies any sick contacts or recent travel. She denies ingesting seafood recently. She denies ingesting well water. The patient also has a history of migraines. Currently she complains of a headache since being admitted last night. Described as constant, sharp. She denies any vision changes. She states this is typical of her migraines. She normally takes Imitrex at home for migraines. She denies any fevers or chills. CBC/BMP: 02/25/17 0600 02/25/17 0600 Significant Findings Laboratory Tests Test 02/23/17 02/25/17 23:50 06:00 Red Blood Count 3.86 MIL/MM3 3.63 MIL/MM3 (4.00-5.30) (4.00-5.30) Monocytes (%) (Auto) 10.3 % 9.9 % (0.0-8.0) (0.0-8.0) Urine Occult Blood TRACE (NEG) Potassium Level 3.1 MEQ/L (3.5-5.1) Blood Urea Nitrogen 5 MG/DL (7-18) 4 MG/DL (7-18) Estimat Glomerular Filtration 86 ML/MIN (>89) Rate Random Glucose 115 MG/DL (74-106) Lactic Acid Level 2.1 mmol/L (0.4-2.0) Aspartate Amino Transf 13 U/L (15-37) (AST/SGOT) Troponin I LESS THAN 0.02 NG/ML (0.02-0.05) Valproic Acid (Depakene) Level 21 MCG/ML (50-100) Hemoglobin 11.1 GM/DL (11.6-15.3) Hematocrit 33.6 % (35.0-46.0) Calcium Level 8.3 MG/DL (8.5-10.1) Imaging Last Impressions Hepatobiliary Scan Nuclear Medicine 02/24/17 0000 Signed Impressions: Service Date/Time: Friday, February 24, 2017 11:55 - CONCLUSION: 1. Prompt visualization of gallbladder exclude cystic duct obstruction. 2. Moderate severity biliary enteric reflux. Andrew Will MD PE at Discharge General: No acute distress. Heart: Regular rate and rhythm. No murmur. Lungs: Clear to auscultation bilaterally. No wheezes, rales, or rhonchi. Breathing is nonlabored. Abdomen: Soft, nontender, nondistended. Extremities: No lower extremity edema. Psych: Alert and oriented. Hospital Course The patient was admitted for further evaluation of abdominal pain, nausea, vomiting, diarrhea. Her diarrhea resolved. GI was consulted. EGD showed mild ulcerations. She was continued on PPI. Her symptoms improved. Her diet was advanced and she tolerated a regular soft diet. She was cleared for discharge by gastroenterology. Pt Condition on Discharge: Stable Discharge Disposition: Discharge Home Discharge Time: > 30 minutes Discharge Instructions DIET: Follow Instructions for: As Tolerated, No Restrictions, Soft Diet Activities you can perform: Regular-No Restrictions Follow up Referrals: Gastroenterology - 10 Days with Katty Calderon MD PCP Follow-up - 1 Week New Medications: Pantoprazole (Pantoprazole) 40 Mg Tab 40 MG PO DAILY Gastric ulcer #30 Ref 0 TAB Continued Medications: Dicyclomine (Bentyl) 20 Mg Tab 20 MG PO QID Bowel Management #20 Ref 0 TAB Divalproex ER (Depakote ER) 250 Mg Kathi 750 MG PO DAILY Control Seizures #90 Ref 0 TAB Ondansetron Odt (Zofran Odt) 4 Mg Tab 4 MG SL Q6HR PRN Nausea/Vomiting #7 Ref 0 TAB Oxycodone-Acetaminophen (Percocet) 7.5-325 mg Tab 1 TAB PO Q6H PRN PAIN #12 Ref 0 TAB Risperidone (Risperidone) 0.5 Mg Tab 0.5 MG PO HS #30 Ref 0 TAB Sumatriptan (Imitrex) 100 Mg Tab 100 MG PO INTERMITTENT If a satisfactory response has not been obtained at 2 hours, a second dose may be administered PRN MIGRAINE HEADACHE Ref 0 TAB Deonte Frank MD Feb 26, 2017 11:19
[2017-02-26] MEDS ORDERED: PANTOPRAZOLE SOD 40 MG DELAYED RELEASE TAB PO SCH (21:00)
[2017-03-02] MEDS ORDERED: PERC7.5T13 PO ×2 (09:35)
[2017-03-02] MEDS ORDERED: PANT40TA3 PO (09:35)
[2017-04-14] MEDS ORDERED: MEDR2.5 PO (08:55)
[2017-04-14] MEDS ORDERED: ESTR1TAB PO (08:55)
[2017-04-16] MEDS ORDERED: MEDR4PAK PO (14:04)
[2017-04-28] MEDS ORDERED: TRIA40P I-ARTICULR (09:26)
== END 2017-02-26 13:30 | disposition home or self-care (01) ==
LOC: PHED 23:14 → PHEDA 02-24 01:45 → PH3A 02-24 03:38
PROVIDERS: ADMIT Family Medicine; ATTEND Family Medicine
DX: K52.9 Noninfective gastroenteritis and colitis, unspecified (principal); F41.9 Anxiety disorder, unspecified; Z85.820 Personal history of malignant melanoma of skin; K21.9 Gastro-esophageal reflux disease without esophagitis; M54.9 Dorsalgia, unspecified; M54.30 Sciatica, unspecified side; G43.909 Migraine, unspecified, not intractable, without status migrainosus; Z79.899 Other long term (current) drug therapy; R00.1 Bradycardia, unspecified; Z87.820 Personal history of traumatic brain injury; G47.00 Insomnia, unspecified; E87.6 Hypokalemia; G40.909 Epilepsy, unspecified, not intractable, without status epilepticus; K25.9 Gastric ulcer, unspecified as acute or chronic, without hemorrhage or perforation; K29.50 Unspecified chronic gastritis without bleeding
CPT/HCPCS: 00740; 43239; 78226; 80048; 80053; 80164; 81001; 83605; 83690; 83735; 84484; 85025; 85610; 85730; 88305; 88312; 93005; 96374; 96375; 99285; A9537; C9113; G0378; J1170; J2405; J3030; J3480; J7030

== ENCOUNTER 2017-07-24 15:45 | Emergency (ER) | payer MEDICARE, OTHER ==
[~2017-07-24] VITALS: Ht 160 cm; Wt 64.0 kg
[~2017-07-24 15:45] MED LIST changes: -BENT20TA PO; +ESTR1TAB PO; +IMIT100T PO; +MEDR2.5 PO; +PANT40TA3 PO; -ZOFR4TAB3 SL
[2017-07-24 15:47] VITALS: BP 130/66; PULSE 81; RESP 20; TEMP 98.4; O2SAT 97
[2017-07-24] MEDS ORDERED: SODIUM CHLOR 0.9% 1000 ML INJ 1,000 ML IV SCH (17:17)
[2017-07-24] MEDS ORDERED: DIVA250ER PO (17:24)
--- NOTE | 2017-07-24 17:25 | PD ---
HPI Chief Complaint: Abdominal Pain Time Seen by Provider: 17:10 Travel History International Travel<30 days: No Contact w/Intl Traveler<30days: No Traveled to known affect area: No History of Present Illness HPI Patient is a 57-year-old female with history of seizure disorder, gastric ulcer , reports that she follows with Dr. Lloyd (GI) as well as Dr. Giron ( neurologist), reports that for the past 3 days, she has had nausea and vomiting. She reports that her gastric ulcer is "acting up" her and reports that the Protonix is not helping her. She is due for a EGD and Colonscopy which is scheduled in 2 months, reports that she needs something to help with her left upper quadrant abdominal pain. Patient denies any fevers or chills, works nausea and vomiting. She denies any constipation or diarrhea. Patient with no chest pain or shortness of breath. Patient also requesting a refill her Depakote ER treatment 750 mg, reports that she was given a prescription for generic Depakote and requires a prescription for the brand name only. Reports that she was unable to get ahold of her neurologist for refill on the brand name Depakote. 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) Social History Alcohol Use: No Tobacco Use: No Substance Use: No Allergies-Medications (Allergen,Severity, Reaction): Coded Allergies: gabapentin (Unverified Allergy, Intermediate, Hallucinations, 07/24/17) Reported Meds & Prescriptions Reported Meds & Active Scripts Active Depakote ER (Divalproex Sodium) 250 Mg Kathi 750 Mg PO DAILY Percocet (Oxycodone-Acetaminophen) 7.5-325 mg Tab 1 Tab PO Q6H PRN Pantoprazole (Pantoprazole Sodium) 40 Mg Tab 40 Mg PO DAILY Reported Provera (Medroxyprogesterone Acetate) 2.5 Mg Tab 2.5 Mg PO DAILY Start day 21 Estradiol 1 Mg Tab 1 Mg PO DAILY Imitrex (Sumatriptan Succinate) 100 Mg Tab 100 Mg PO INTERMITTENT PRN If a satisfactory response has not been obtained at 2 hours, a second dose may be administered Risperidone 0.5 Mg Tab 0.5 Mg PO HS Depakote ER (Divalproex Sodium) 250 Mg Kathi 750 Mg PO DAILY Review of Systems General / Constitutional: No: Fever Eyes: No: Visual changes HENT: No: Headaches Cardiovascular: No: Chest Pain or Discomfort Respiratory: No: Shortness of Breath Gastrointestinal: Positive: Nausea, Vomiting, Abdominal Pain, No: Diarrhea, Constipation Genitourinary: No: Dysuria Musculoskeletal: No: Pain Skin: No Rash Neurologic: No: Weakness Psychiatric: No: Depression Endocrine: No: Polydipsia Hematologic/Lymphatic: No: Easy Bruising Physical Exam Narrative GENERAL: Mild distress SKIN: Focused skin assessment warm/dry. HEAD: Atraumatic. Normocephalic. EYES: Pupils equal and round. No scleral icterus. No injection or drainage. ENT: No nasal bleeding or discharge. Mucous membranes pink and moist. NECK: Trachea midline. No JVD. CARDIOVASCULAR: Regular rate and rhythm. No murmur appreciated. RESPIRATORY: No accessory muscle use. Clear to auscultation. Breath sounds equal bilaterally. GASTROINTESTINAL: Abdomen soft, non-tender, nondistended. Hepatic and splenic margins not palpable. MUSCULOSKELETAL: No obvious deformities. No clubbing. No cyanosis. No edema. NEUROLOGICAL: Awake and alertMotor grossly within normal limits. Normal speech. PSYCHIATRIC: Anxious mood and affect; insight and judgment normal. Data Data Last Documented VS Vital Signs Date Time Temp Pulse Resp B/P (MAP) Pulse Ox O2 Delivery O2 Flow Rate FiO2 07/24/17 15:47 98.4 81 20 130/66 (87) 97 Orders Orders Complete Blood Count With Diff (07/24/17 17:17) Comprehensive Metabolic Panel (07/24/17 17:17) Iv Access Insert/Monitor (07/24/17 17:17) Ondansetron Inj (Zofran Inj) (07/24/17 17:30) Sodium Chlor 0.9% 1000 Ml Inj (Ns 1000 M (07/24/17 17:17) Sodium Chloride 0.9% Flush (Ns Flush) (07/24/17 17:30) Famotidine Inj (Pepcid Inj) (07/24/17 17:30) Dicyclomine (Bentyl) (07/24/17 17:30) Sucralfate Liq (Carafate Liq) (07/24/17 17:30) Labs Laboratory Tests Test 07/24/17 17:20 White Blood Count 5.5 TH/MM3 Red Blood Count 4.05 MIL/MM3 Hemoglobin 12.7 GM/DL Hematocrit 36.1 % Mean Corpuscular Volume 89.2 FL Mean Corpuscular Hemoglobin 31.4 PG Mean Corpuscular Hemoglobin Concent 35.2 % Red Cell Distribution Width 12.9 % Platelet Count 239 TH/MM3 Mean Platelet Volume 8.9 FL Neutrophils (%) (Auto) 62.0 % Lymphocytes (%) (Auto) 29.9 % Monocytes (%) (Auto) 7.2 % Eosinophils (%) (Auto) 0.1 % Basophils (%) (Auto) 0.8 % Neutrophils # (Auto) 3.4 TH/MM3 Lymphocytes # (Auto) 1.7 TH/MM3 Monocytes # (Auto) 0.4 TH/MM3 Eosinophils # (Auto) 0.0 TH/MM3 Basophils # (Auto) 0.0 TH/MM3 CBC Comment DIFF FINAL Differential Comment Blood Urea Nitrogen 13 MG/DL Creatinine 0.54 MG/DL Random Glucose 84 MG/DL Total Protein 7.2 GM/DL Albumin 4.0 GM/DL Calcium Level 8.9 MG/DL Alkaline Phosphatase 52 U/L Aspartate Amino Transf (AST/SGOT) 11 U/L Alanine Aminotransferase (ALT/SGPT) 16 U/L Total Bilirubin 0.6 MG/DL Sodium Level 126 MEQ/L Potassium Level 3.9 MEQ/L Chloride Level 93 MEQ/L Carbon Dioxide Level 26.8 MEQ/L Anion Gap 6 MEQ/L Estimat Glomerular Filtration Rate 117 ML/MIN [facility] Medical Decision Making Medical Screen Exam Complete: Yes Emergency Medical Condition: Yes Interpretation(s) Vital Signs Date Time Temp Pulse Resp B/P (MAP) Pulse Ox O2 Delivery O2 Flow Rate FiO2 07/24/17 15:47 98.4 81 20 130/66 (87) 97 Differential Diagnosis Differential includes gastritis, gastric ulcer, gastroenteritis, medication refill, electrolyte abnormality Narrative Course Patient is a 57-year-old female with multiple complaints. Patient with history of gastric ulcers and follows up with Dr. Lloyd for this, reports that prontonix has not been helping for her symptoms. Patient reports nausea and vomiting for the past 3 days with no diarrhea. Patient reports that she has discomfort to her left upper quadrant, no fevers or chills, no other complaints. Vital Signs Date Time Temp Pulse Resp B/P (MAP) Pulse Ox O2 Delivery O2 Flow Rate FiO2 07/24/17 15:47 98.4 81 20 130/66 (87) 97 CBC & BMP Diagram 07/24/17 17:20 Total Protein 7.2, Albumin 4.0, Calcium Level 8.9, Alkaline Phosphatase 52, Aspartate Amino Transf (AST/SGOT) 11 L, Alanine Aminotransferase (ALT/SGPT) 16, Total Bilirubin 0.6 Patient reevaluated, patient feeling much better at this time. Abdomen is soft , nontender, not distended, no peritoneal signs. Patient reports resolution of nausea and vomiting. Patient will follow-up with a primary care doctor as well as her director software quality assurance and return to emergency was needed. A prescription for her normal dose of Depakote was given to her at discharge Diagnosis Primary Impression: Nausea & vomiting Qualified Codes: R11.2 - Nausea with vomiting, unspecified Additional Impression: Medication refill Patient Instructions: General Instructions Additional Instructions: Please take all medications as prescribed Return to ER as needed Return to ER if symptoms worsen or progress Please follow up with your specialist as scheduled Med/Other Pt SpecificInfo: Prescription(s) given Scripts Ondansetron (Zofran) 4 Mg Tab 4 MG PO Q6HR Y for NAUSEA OR VOMITING, #30 TAB 0 Refills Prov: Apurva Espinosa DO 07/24/17 Divalproex ER (Depakote ER) 250 Mg Kathi 750 MG PO DAILY for Control Seizures, #90 TAB 0 Refills Prov: Apurva Espinosa DO 07/24/17 Disposition: 01 DISCHARGE HOME Condition: Stable Apurva Espinosa DO Jul 24, 2017 17:25
[2017-07-24] MEDS ORDERED: FAMOTIDINE 20 MG/2 ML VIAL IV PUSH ONE (17:30)
[2017-07-24] MEDS ORDERED: DICYCLOMINE HCL 10 MG CAP PO ONE (17:30)
[2017-07-24] MEDS ORDERED: ONDANSETRON HCL 4 MG/2 ML VIAL IVP ONE (17:30)
[2017-07-24] MEDS ORDERED: SUCRALFATE 1 GM/10 ML CUP PO ONE (17:30)
[2017-07-24] MEDS ORDERED: SODIUM CHLORIDE 0.9% FLUSH 10 ML FLUSH IV FLUSH PRN (17:30)
[2017-07-24 18:41] LABS: AUTOMATED NEUTROPHIL # 3.4 TH/MM3 (1.8-7.7); BASOPHIL % 0.8 % (0.0-2.0); EOSINOPHIL % 0.1 % (0.0-4.0); HEMATOCRIT 36.1 % (35.0-46.0); HEMO FLAGS DIFF FINAL; LYMPH % 29.9 % (9.0-44.0); LYMPHOCYTE # 1.7 TH/MM3 (1.0-4.8); MEAN CELL VOLUME 89.2 FL (80.0-100.0); MEAN CORPUSCULAR HEMOGLOBIN 31.4 PG (27.0-34.0); MEAN CORPUSCULAR HGB CONC 35.2 % (32.0-36.0); MONO % 7.2 % (0.0-8.0); PLATELET COUNT 239 TH/MM3 (150-450); RED BLOOD COUNT 4.05 MIL/MM3 (4.00-5.30); RED CELL DISTRIBUTION WIDTH 12.9 % (11.6-17.2); WHITE BLOOD COUNT 5.5 TH/MM3 (4.0-11.0)
[2017-07-24 18:57] LABS: ANION GAP 6 MEQ/L (5-15); AST (GOT) 11 U/L (15-37); BICARBONATE 26.8 MEQ/L (21.0-32.0); BLOOD UREA NITROGEN 13 MG/DL (7-18); CHLORIDE 93 MEQ/L (98-107); GLOMERULAR FILTRATION RATE 117 ML/MIN (>89); POTASSIUM 3.9 MEQ/L (3.5-5.1); SODIUM (NA) 126 MEQ/L (136-145)
[2017-07-24 19:01] LABS: ALKALINE PHOSPHATASE 52 U/L (45-117); ALT (GPT) 16 U/L (10-53); TOTAL BILIRUBIN ADULT 0.6 MG/DL (0.2-1.0)
[2017-07-24] MEDS ORDERED: ZOFR4TAB PO (19:14)
[2017-07-27] MEDS ORDERED: PERC7.5T13 PO (15:37)
[2017-07-27] MEDS ORDERED: DEPA500T3 PO (15:37)
[2017-07-27] MEDS ORDERED: DIVA250ER PO (15:37)
[2017-07-27] MEDS ORDERED: SUCR1TAB PO (15:38)
== END 2017-07-24 20:00 | disposition home or self-care (01) ==
LOC: NEPD 15:45
DX: R11.2 Nausea with vomiting, unspecified (principal); K25.9 Gastric ulcer, unspecified as acute or chronic, without hemorrhage or perforation; R10.12 Left upper quadrant pain
CPT/HCPCS: 80053; 85025; 96361; 96374; 96375; 99284; J2405; J7030

== ENCOUNTER 2017-10-08 15:15 | Emergency (ER) | payer MEDICARE, OTHER ==
[~2017-10-08] VITALS: Ht 161.3 cm; Wt 63.0 kg
[~2017-10-08 15:15] MED LIST changes: +DEPA500T3 PO; +SUCR1TAB PO
[2017-10-08 15:18] VITALS: BP 111/72; PULSE 80; RESP 16; TEMP 98; O2SAT 97
--- NOTE | 2017-10-08 15:53 | PD ---
HPI . Elbow pain Chief Complaint: Injury Time Seen by Provider: 15:42 Travel History International Travel<30 days: No Contact w/Intl Traveler<30days: No Traveled to known affect area: No History of Present Illness HPI This patient presents with chief complaint of left elbow pain. Onset was a couple days ago. She states that she inadvertently struck her elbow against a soda machine. She states that the injury seemed pretty minor but she has had persistent pain since the accident. She has noted decreased range of motion. She subsequently presents to us for further evaluation. Pain is rated 7/10. 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) Social History Alcohol Use: No Tobacco Use: No Substance Use: No Allergies-Medications (Allergen,Severity, Reaction): Coded Allergies: gabapentin (Unverified Allergy, Intermediate, Hallucinations, 10/08/17) Reported Meds & Prescriptions Reported Meds & Active Scripts Active Depakote ER (Divalproex Sodium) 500 Mg Kathi 500 Mg PO DAILY Depakote ER (Divalproex Sodium) 250 Mg Kathi 250 Mg PO DAILY Percocet (Oxycodone-Acetaminophen) 7.5-325 mg Tab 1 Tab PO Q6H PRN Reported Risperidone 0.5 Mg Tab 0.5 Mg PO HS Review of Systems Musculoskeletal: Positive: Arthralgias, Edema Physical Exam Narrative GENERAL: Awake and alert and in no acute distress. SKIN: Warm and dry. HEAD: Normocephalic/atraumatic. EYES: Pupils are equal. Extraocular movements are intact. NECK: Normal range of motion. CARDIOVASCULAR: Regular rate and rhythm. RESPIRATORY: Nonlabored respirations. MUSCULOSKELETAL: Point tender over the left lateral epicondyle. She does have decreased range of motion of the left elbow. There is no gross deformity. She is distally neurovascularly intact. NEUROLOGICAL: Nonfocal. PSYCHIATRIC: Appropriate mood and affect. Data Data Last Documented VS Vital Signs Date Time Temp Pulse Resp B/P (MAP) Pulse Ox O2 Delivery O2 Flow Rate FiO2 10/08/17 15:18 98.0 80 16 111/72 (85) 97 Orders Orders Elbow, Complete (4 Vws) (10/08/17 15:43) MDM Medical Decision Making Medical Screen Exam Complete: Yes Emergency Medical Condition: Yes Differential Diagnosis Differential diagnosis of extremity trauma includes but is not limited to fracture, sprain or strain, dislocation, contusion Narrative Course Patient presents with a left elbow injury. She is tender over the left lateral epicondyle. X-ray is pending. X-ray>>Mild arthritic changes within the elbow. No acute fracture is identified. The x-ray was independently viewed by me. Diagnosis Primary Impression: Left elbow contusion Qualified Codes: S50.02XA - Contusion of left elbow, initial encounter Patient Instructions: Contusion in Adults (DC), General Instructions, RICE Therapy (ED) Med/Other Pt SpecificInfo: Prescription(s) given Scripts Nabumetone (Nabumetone) 500 Mg Tab 500 MG PO BID for Pain-Inflammation, #60 TAB 0 Refills Prov: Pari So MD 10/08/17 Disposition: 01 DISCHARGE HOME Condition: Stable Pari So MD Oct 08, 2017 15:53
--- NOTE | 2017-10-08 16:23 | RADRPT ---
EXAM DATE/TIME: 10/08/2017 16:05 [facility] COMPARISON: HAND RIGHT COMPLETE ([id number]), November 13, 2016, 16:03. INDICATIONS : Left elbow pain and swelling; No known injury. MEDICAL HISTORY : None. SURGICAL HISTORY : None. ENCOUNTER: Initial ACUITY: 3 days PAIN SCORE: 7/10 LOCATION: Left posterior elbow. FINDINGS: Multiple view examination of the left elbow demonstrates no soft tissue swelling, joint effusion, or fracture. There are mild arthritic changes. The osseous structures are in normal alignment. Bony mi neralization is normal. CONCLUSION: 1. Mild arthritic changes within the elbow. No acute fracture is identified. Cristhian Garzon MD on October 08, 2017 at 16:20 Board Certified Radiologist. This report was verified electronically.
[2017-10-08] MEDS ORDERED: NABU1TAB37 PO (16:30)
[2017-10-16] MEDS ORDERED: PERC5TAB12 PO (10:20)
[2017-10-16] MEDS ORDERED: TRIA40P I-ARTICULR (10:34)
== END 2017-10-08 16:40 | disposition home or self-care (01) ==
LOC: PHEFT 15:15
DX: S50.02XA Contusion of left elbow, initial encounter (principal); W22.8XXA Striking against or struck by other objects, initial encounter
CPT/HCPCS: 73080; 99283

== ENCOUNTER 2018-02-19 23:45 | Emergency (ER) | payer MEDICARE, OTHER ==
[~2018-02-19] VITALS: Ht 160 cm; Wt 66.3 kg
[~2018-02-19 23:45] MED LIST changes: -IMIT100T PO; +NABU1TAB37 PO; -PANT40TA3 PO; -SUCR1TAB PO
[2018-02-19 23:55] VITALS: BP 131/74; PULSE 81; RESP 14; TEMP 97.6; O2SAT 97
[2018-02-20] MEDS ORDERED: PERC10TA27 PO (01:12)
--- NOTE | 2018-02-20 01:38 | PD ---
HPI Chief Complaint: Pain: Acute or Chronic Time Seen by Provider: 01:31 Travel History International Travel<30 days: No Contact w/Intl Traveler<30days: No Traveled to known affect area: No History of Present Illness HPI The patient is a 57-year-old female, frequent visitor to the emergency department, who complains of pain in both feet, left greater than right and pain in the left neck for approximately 2 weeks. She denies any injury or trauma. She does not work. She is disabled with traumatic brain injury. 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) Social History Alcohol Use: No Tobacco Use: No Substance Use: No Allergies-Medications (Allergen,Severity, Reaction): Coded Allergies: gabapentin (Verified Allergy, Intermediate, Hallucinations, 12/07/17) Reported Meds & Prescriptions Reported Meds & Active Scripts Active Depakote ER (Divalproex Sodium) 500 Mg Kathi 500 Mg PO DAILY Depakote ER (Divalproex Sodium) 250 Mg Kathi 250 Mg PO DAILY Reported Percocet (Oxycodone-Acetaminophen) 10-325 mg Tab 1 Tab PO Q4H PRN Risperidone 0.5 Mg Tab 0.5 Mg PO HS Review of Systems Except as stated in HPI: all other systems reviewed are Neg Physical Exam Narrative GENERAL: The patient is alert, oriented 3 in slight apparent distress with her bilateral foot pain and neck pain. Her vital signs are normal. SKIN: Focused skin assessment warm/dry. HEAD: Atraumatic. Normocephalic. EYES: Pupils equal and round. No scleral icterus. No injection or drainage. ENT: No nasal bleeding or discharge. Mucous membranes pink and moist. NECK: Trachea midline. No JVD. There is tenderness over the left trapezius of the neck. There is no posterior spinous process tenderness or deformity. CARDIOVASCULAR: Regular rate and rhythm. No murmur appreciated. RESPIRATORY: No accessory muscle use. Clear to auscultation. Breath sounds equal bilaterally. GASTROINTESTINAL: Abdomen soft, non-tender, nondistended. Hepatic and splenic margins not palpable. MUSCULOSKELETAL: No obvious deformities. No clubbing. No cyanosis. No edema. I can completely reproduce the patient's pain by pressing on the plantar fascial area of the feet. NEUROLOGICAL: Awake and alert. No obvious cranial nerve deficits. Motor grossly within normal limits. Normal speech. PSYCHIATRIC: Appropriate mood and affect; insight and judgment normal. Data Data Last Documented VS Vital Signs Date Time Temp Pulse Resp B/P (MAP) Pulse Ox O2 Delivery O2 Flow Rate FiO2 02/20/18 02:45 70 16 116/78 (91) 98 Room Air 02/19/18 23:55 97.6 Orders Orders Foot, Complete (Gid2cat) (02/20/18 01:38) Foot, Complete ([id number]) (02/20/18 01:38) Spine, Cervical Compl([id number]) (02/20/18 01:38) Ketorolac Inj (Toradol Inj) (02/20/18 01:45) MDM Medical Decision Making Medical Screen Exam Complete: Yes Emergency Medical Condition: Yes Medical Record Reviewed: Yes Interpretation(s) X-rays show moderate degenerative changes of the cervical spine and the left and right feet are negative on x-ray. Differential Diagnosis Plantar fasciitis, stress fracture, other foot fracture, neck fracture, cervical strain Narrative Course The patient has plantar fasciitis. She also has a cervical strain. She will be given Motrin, 600 mg 3 times daily. She will need to follow-up with a gear machinist and stay off of her feet. Additional Instructions: As we discussed, stay off your feet as best as you can. Anything that hurts your neck or feet you should not be doing. Follow-up with a gear machinist. The ibuprofen is 1 tablet 3 times daily. Med/Other Pt SpecificInfo: Prescription(s) given Scripts Ibuprofen (Ibuprofen) 600 Mg Tab 600 MG PO TID, #33 TAB 0 Refills Prov: Ramiro Quiles MD 02/20/18 Disposition: DISCHARGE HOME Condition: Stable Ramiro Quiles MD Feb 20, 2018 01:38
[2018-02-20] MEDS ORDERED: KETOROLAC TROMETHAMINE 60 MG/2 ML (IM) VIAL IM ONE (01:45)
--- NOTE | 2018-02-20 02:12 | RADRPT ---
EXAM DATE/TIME: 02/20/2018 01:44 [facility] COMPARISON: No previous studies available for comparison. INDICATIONS : Left planter foot pain. MEDICAL HISTORY : Gastroesophageal reflux disease. SURGICAL HISTORY : None. ENCOUNTER: Initial ACUITY: 1 week PAIN SCORE: 9/10 LOCATION: Left foot FINDINGS: Three view examination of the left foot demonstrates no soft tissue swelling, dislocation, or fractur e. The tarsal bones appear intact. The interphalangeal and metatarsophalangeal joints are intact. The calcaneus is intact. Bony mineralization is normal. CONCLUSION: 1. Negative examination of the foot. Anjel House MD on February 20, 2018 at 2:10 Board Certified Radiologist. This report was verified electronically.
--- NOTE | 2018-02-20 02:13 | RADRPT ---
EXAM DATE/TIME: 02/20/2018 01:44 [facility] COMPARISON: No previous studies available for comparison. INDICATIONS : Right planter foot pain. MEDICAL HISTORY : Gastroesophageal reflux disease. SURGICAL HISTORY : None. ENCOUNTER: Initial ACUITY: 1 week PAIN SCORE: 9/10 LOCATION: Right foot FINDINGS: Three view examination of the right foot demonstrates no soft tissue swelling, dislocation, or fractu re. The tarsal bones appear intact. The interphalangeal and metatarsophalangeal joints are intact. The calcaneus is intact. Bony mineralization is normal. CONCLUSION: 1. Negative examination of the foot. Anjel House MD on February 20, 2018 at 2:11 Board Certified Radiologist. This report was verified electronically.
--- NOTE | 2018-02-20 02:15 | RADRPT ---
EXAM DATE/TIME: 02/20/2018 01:44 [facility] COMPARISON: No previous studies available for comparison. INDICATIONS : Left cervical spine pain. MEDICAL HISTORY : Gastroesophageal reflux disease. SURGICAL HISTORY : None. ENCOUNTER: Initial ACUITY: 1 week PAIN SCORE: 9/10 LOCATION: Left neck FINDINGS: There is anterolisthesis likely related to facet arthritis at C4-C5 of 2-3 mm with slightly disease o f C5 on C6 with associated disc space narrowing. Oblique views demonstrate narrowing on the right dasia e at C5-C6. The left-sided foramen are patent. The odontoid is intact. There is no widening of the at lantoaxial space. CONCLUSION: 1. Moderate degenerative changes as described above. Anjel House MD on February 20, 2018 at 2:11 Board Certified Radiologist. This report was verified electronically.
[2018-02-20 02:45] VITALS: BP 116/78; PULSE 70; RESP 16; O2SAT 98
[2018-02-20] MEDS ORDERED: IBUP-232 PO (02:56)
== END 2018-02-20 03:12 | disposition home or self-care (01) ==
LOC: PHED 23:45
DX: M72.2 Plantar fascial fibromatosis (principal); S16.1XXA Strain of muscle, fascia and tendon at neck level, initial encounter; F32.9 Major depressive disorder, single episode, unspecified; Z79.899 Other long term (current) drug therapy
CPT/HCPCS: 72050; 73630; 96372; 99284; J1885